=== PATIENT | female | born 1970 | race Caucasian/White ===

== ENCOUNTER 2023-10-27 07:51 | Observation (INO) ==
[~2023-10-27 07:51] MED LIST: Buffered Lidocaine 1% SYRIN 1 ml INTRADERM ONE; Famotidine IV 10 MG/ML 2 ml VIAL (20 mg) IV ONE; Lactated Ringers 1000 ml BAG 1,000 ML IV SCH
[2023-10-27] MEDS ORDERED: Famotidine IV 10 MG/ML 2 ml VIAL (20 mg) ONE (08:34)
[2023-10-27] MEDS ORDERED: Tranexamic Acid 1 GM/100ML BAG 2,000 MG/200 ML BAG IV ONE (08:34)
[2023-10-27] MEDS ORDERED: ceFAZolin 2 GM PREMIX 2 GM/50 ML BAG ONE (08:34)
[2023-10-27 08:47] LABS: Rapid COVID-19 Molecular Undetected (Undetected)
[2023-10-27] MEDS ORDERED: ROPIVACAINE 5 MG/ML 30 ML BTL (0.5%) ONE (10:18)
[2023-10-27] MEDS ORDERED: Ondansetron 4 mg VIAL 2 MG/ML 2 ml VIAL ONE (10:22)
[2023-10-27] MEDS ORDERED: Propofol 10 MG/ML 20 ML BTL ONE (10:22)
[2023-10-27] MEDS ORDERED: Dexamethasone IV 4 MG/ML VIAL 1 ml VIAL ONE ×2 (10:22→11:25)
[2023-10-27] MEDS ORDERED: Glycopyrrolate IV 0.2 MG/ML 1 ML VIAL ONE (10:22)
[2023-10-27] MEDS ORDERED: Rocuronium 50 mg VIAL 10 mg/ml 5 ml VIAL (50 mg) ONE (10:23)
[2023-10-27] MEDS ORDERED: Lidocaine 2% PF 5 ML VIAL ONE (10:23)
[2023-10-27] MEDS ORDERED: Ondansetron 4 mg VIAL 2 MG/ML 2 ml VIAL IV PRN ×2 (10:24→13:55)
[2023-10-27] MEDS ORDERED: Midazolam 2 mg/2 ml VIAL 1 mg/ml 2 ml VIAL (2 mg) ONE (10:24)
[2023-10-27] MEDS ORDERED: fentaNYL 100 mcg/2 ml 50 MCG/ML VIAL ONE ×3 (10:24→14:24)
[2023-10-27] MEDS ORDERED: Naloxone 0.4 mg VIAL 0.4 mg/ml 1 ml VIAL IV PRN (10:24)
[2023-10-27] MEDS ORDERED: HYDROmorphone 0.5 MG/0.5 ML SYRINGE ONE (10:25)
[2023-10-27] MEDS ORDERED: Dexmedetomidine 200 mcg/2 ml 2 ml VIAL (200 mcg) ONE (10:47)
[2023-10-27] MEDS ORDERED: Sterile Water for Inj 10 ML ONE ×2 (10:48→13:32)
[2023-10-27] MEDS ORDERED: Morphine 2 MG/ML SYRINGE IV PRN (13:55)
[2023-10-27] MEDS ORDERED: Ondansetron ODT 4 mg TAB 4 MG TAB PO PRN (13:55)
[2023-10-27] MEDS ORDERED: Lactulose 30 ml UDC PO PRN (13:55)
[2023-10-27] MEDS ORDERED: Magnesium Hydroxide LIQ 30 ML UDC PO PRN (13:55)
[2023-10-27] MEDS ORDERED: HYDROmorphone 1 MG/1 ML SYRINGE ONE (14:15)
[2023-10-27] MEDS: HYDROmorphone 1 MG/1 ML SYRINGE IV PRN ×5 (14:16→14:53)
[2023-10-27] MEDS: fentaNYL 100 mcg/2 ml 50 MCG/ML VIAL IV PRN ×4 (14:25→14:45)
[2023-10-27] MEDS: Lactated Ringers 1000 ml BAG 1,000 ML IV SCH (16:24)
[2023-10-27] MEDS: ceFAZolin 1 GM ADVAN 1 GM in NS 0.9% 50 ML 50 ML IVPB SCH (20:02)
[2023-10-27] MEDS: Magnesium Hydroxide LIQ 30 ML UDC PO SCH (22:18)
[2023-10-28] MEDS: Lactated Ringers 1000 ml BAG 1,000 ML IV SCH (01:34)
[2023-10-28] MEDS: ceFAZolin 1 GM ADVAN 1 GM in NS 0.9% 50 ML 50 ML IVPB SCH ×2 (03:57→11:13)
[2023-10-28 08:12] LABS: Platelet Count 178 10^3/uL (150-450)
[2023-10-28 08:28] LABS: Calcium 8.6 mg/dL (8.6-10.3); Creatinine, Serum 0.86 mg/dL (0.51-0.95); Potassium 3.8 mmol/L (3.5-5.0); eGFR CKD-EPI 80.2 (>60)
[2023-10-28] MEDS: Magnesium Hydroxide LIQ 30 ML UDC PO SCH (08:29)
[2023-10-28 08:52] LABS: Hematocrit 32.1 % (35-45); Mean Platelet Volume 9.6 fL (7.5-11.2)
[2023-10-28] MEDS ORDERED: DULoxetine DR 60 mg CAP PO SCH (09:00)
[2023-10-28] MEDS ORDERED: Vitamin THERAPEUTIC TAB PO SCH (09:00)
[2023-10-28 10:37] VITALS: BP 119/67
== END 2023-10-28 13:34 | disposition home or self-care (01) ==
LOC: OR 07:51 → SSU 07:51
PROVIDERS: ADMIT Orthopaedic Surgery Adult Reconstructive Orthopaedic Surgery; ATTEND Orthopaedic Surgery Adult Reconstructive Orthopaedic Surgery